=== PATIENT | male | born 2000 | race Caucasian/White ===

== ENCOUNTER 2024-04-24 11:16 | Emergency (ER) | payer BC, SELFPAY ==
[2024-04-24 11:35] VITALS: BP 126/77
--- NOTE | 2024-04-24 11:35 | ED.PDOC.TRB ---
ED Provider Triage
-
Patient seen by provider in Triage?: Seen in Triage
Fall down 4 steps 2-3 days ago. Since has had pain to lower middle back, radiating towards left leg. no meds today but took advil/tylenol yesterday. no neuro concerns. no head injury. Ambulatory and in NAD
--- NOTE | 2024-04-24 13:22 | ED.GENMED ---
History of Present Illness
General
Chief Complaint: Fall
Source: patient
Exam Limitations: none
Time Seen by Provider: 04/24/24 12:07
Nursing documentation reviewed up to this point in time: agreed with
Travel History
Have you had any contact with someone who has COVID-19?: No
Do you have any symptoms of coronavirus? Fever > 100 degrees, chills, cough, shortness of breath, sore throat, loss of taste or smell, muscle aches, or headache?: No
History of Present Illness
History of Present Illness:
23-year-old male presenting to the emergency department today with concerns of falling down 4 steps 3 days ago slipping backward hitting his low back. At the time felt okay was able to stand up and walk has had increasing achiness to the low back
with some radiation down his legs since. No changes in bowel or bladder function no fevers no breaks in the skin no nausea vomiting
Review of Systems
Review of Systems
Allergies reviewed?: Yes
All Other Systems: ROS reviewed and negative except as documented in HPI and ROS
Phy Exam
Physical Exam
Physical Exam:
GENERAL: Alert , in no apparent distress
EYE: pupils equal and reactive
NECK: Supple, no significant adenopathy.
ENT: o/p clr, mmm.
CARDIAC: Regular rate and rhythm .
LUNGS: Clear breath sounds bilaterally, no acute respiratory distress, no wheezes/rales/rhonchi
ABDOMEN: Soft, without focal tenderness, no r/g, no cvat
NEUROLOGICAL: Alert and oriented, no focal neuro deficits 5-5 strength lower extremities normal sensation with palpating bilaterally. No saddle anesthesia
SKIN: Warm and dry, skin intact.
MUSCULOSKELETAL: No edema, well perfused.
PSYCH: Normal and appropriate interaction.
Course
Orders/Labs/Results
Orders:
Orders
04/24/24 11:36
CR Lumbar Spine Comp Min 4 Vw* Urgent
Comment:
Reason For Exam: fall down steps, lower back pain
04/24/24 13:38
Dexamethasone [Decadron] 10 mg PO NOW STA
Diazepam [Valium] 5 mg PO NOW STA
04/24/24 13:39
Ketorolac [Toradol] 30 mg IM NOW STA
Vital Signs
Initial and Last Documented VS:
Initial Vital Signs
Temp Pulse Resp BP Pulse Ox
98.0 F 68 18 126/77 99
04/24/24 11:35 04/24/24 11:35 04/24/24 11:35 04/24/24 11:35 04/24/24 11:35
Last Documented Vital Signs
Temp Pulse Resp BP Pulse Ox
98.0 F 53 16 124/73 96
04/24/24 11:35 04/24/24 14:03 04/24/24 14:03 04/24/24 14:03 04/24/24 14:03
MDM/Problems Addressed
MDM/Problems Addressed:
23-year-old male presenting to the emergency department today with concerns of low back tripping down 4 steps 3 days ago. Here there is no reproducible pain but pain made worse with movement. Normal neurologic function of lower extremities no
change in bowel or bladder function no evidence or symptoms consistent with cauda equina or spinal epidural abscess. Patient with likely mechanical back pain secondary to recent injury this likely soft tissue injury. X-ray did not show any signs
of fracture. There was potential incidental finding of mild anterior angulation centered in the inferior sacrum however patient does not have tenderness in this area does not clinically correlate likely normal variation as described by the
radiology read. Patient has significant improvement of symptoms after receiving steroid and muscle relaxer here stable for discharge. Return precautions were given.
*Critical Care Note
Total Time (30-74mins, 75-104mins- exclusive of procedures): Not Applicable
ED Attending Note
-
Portions of this chart may have been created with voice recognition software.� Occasional wrong word or��sound alike� substitutions may have occurred due to the inherent limitations of voice recognition software.
Discharge Plan
Departure
Patient Disposition: Home (Routine Discharge)
Date of Disposition: 04/24/24
Time of Disposition: 15:18
Patient with high blood pressure during this ER visit?: No
Condition: Good
Covid-19: Not Applicable
Discharge Problem:
Low back pain
Instructions: Back Pain
Prescriptions:
New
prednisone 20 mg tablet
40 mg PO DAILY 3 Days Qty: 6 0RF
ibuprofen 600 mg tablet
600 mg PO Q8H PRN (Reason: Pain) Qty: 14 0RF
tizanidine [Zanaflex] 4 mg capsule
4 mg PO BID PRN (Reason: muscle spasticity) Qty: 7 0RF
Referrals:
NONE,* [Family Provider] -
Activity Restrictions/Additional Instructions:
You came to the emergency department today with concerns of back discomfort. Here you had improvement after receiving medication. You can take the prescribed medication as needed moving forward. Symptoms should hopefully improve over the next few
days. Return to the emergency department for any worsening, new or concerning symptoms. Otherwise follow-up for ongoing symptoms with the primary care doctor in the next week or so.
Interventions
Interventions:
*Risk Screen - Suicide Last Done: 04/24/24 14:03
*General Assessment Last Done: 04/24/24 14:03
*Neglect/Abuse Screening Last Done: 04/24/24 14:03
*ED COVID-19 Vaccine History Last Done: 04/24/24 11:35
ED-Musculoskeletal Assessment Last Done: 04/24/24 14:03
ED- Neurological Assessment Last Done: 04/24/24 14:03
ED-Skin Assessment Last Done: 04/24/24 14:03
Discharge Date and Time
Print Language: FRISIAN
[2024-04-24] MEDS: DECADRON 10 MG PO (13:55)
[2024-04-24] MEDS: VALIUM 5 MG PO (13:55)
[2024-04-24] MEDS: TORADOL 30 MG IM (13:56)
[2024-04-24 14:03] VITALS: BP 124/73
== END 2024-04-24 15:27 | disposition home or self-care (01) ==
LOC: EMR 11:16
PROVIDERS: EMERGENCY PHYSICIAN Emergency Medicine
DX: M54.50 Low back pain, unspecified (principal); M79.605 Pain in left leg; M79.604 Pain in right leg; W10.9XXA Fall (on) (from) unspecified stairs and steps, initial encounter
CPT/HCPCS: 99284; 96372; 72110